=== PATIENT | male | born 1970 | race Hispanic/Latino ===

== ENCOUNTER 2018-08-06 13:01 | Inpatient (IN) | payer OTHER ==
[~2018-08-06] VITALS: Ht 165.1 cm; Wt 69.8 kg
[2018-08-06 14:23] LABS: APPEARANCE,URINE Clear (CLEAR); BILIRUBIN,URINE Negative (NEGATIVE); COLOR,URINE Dark Yellow (YELLOW); GLUCOSE, URINE (UA) Negative (NEGATIVE); KETONES,URINE Trace mg/dL (NEGATIVE); LEUKOCYTE ESTERASE ,URINE Negative (NEGATIVE); NITRATE,URINE Negative (NEGATIVE); OCCULT BLOOD,URINE Nonhemolyzed Trace (NEGATIVE); PROTEIN,URINE Trace (NEGATIVE)
[2018-08-06] MEDS ORDERED: SODIUM CHLORIDE 0.9% 1000ML 1,000 ML IV ONE (14:24)
[2018-08-06] MEDS ORDERED: ONDANSETRON HCL 4 MG/2 ML VIAL ONE (14:24)
[2018-08-06 14:43] LABS: BACTERIA,URINE None Seen /HPF (None Seen); RBC,URINE 0-1 /HPF (0-1); SQUAMOUS EPITHELIAL CELL,UR 0-2 /HPF (0-2); WBC,URINE None Seen /HPF (0-1)
[2018-08-06 14:50] LABS: BASOPHILS % (AUTO) 0.2 % (0.0-5.0); EOSINOPHILS % (AUTO) 1.5 % (0.0-8.0); HEMATOCRIT 41.9 % (42-54); LYMPHOCYTES % (AUTO) 17.3 % (21.0-51.0); MEAN CORPUSCULAR HEMOGLOBIN 33.2 pg (27.0-33.0); MEAN CORPUSCULAR HGB CONC 33.6 g/dL (32.0-36.0); MEAN CORPUSCULAR VOLUME 98.7 fL (79-99); MONOCYTES % (AUTO) 13.9 % (3.0-13.0); NEUTROPHILS % (AUTO) 67.1 % (40.0-77.0); PLATELET COUNT (AUTO) 157 K/uL (130-400); RED BLOOD CELL COUNT(AUTO) 4.25 MIL/uL (4.50-6.20); RED CELL DISTRIBUTION WIDTH 15.2 % (11.0-15.5); WHITE BLOOD COUNT (AUTO) 4.9 K/uL (4.8-10.8)
[2018-08-06 15:00] LABS: CREATININE 0.8 mg/dL (0.5-1.5); POTASSIUM 3.5 mmol/L (3.5-5.1)
[2018-08-06 15:01] LABS: ALBUMIN 3.6 g/dL (3.5-5.0); BILIRUBIN,TOTAL 0.3 mg/dL (0.2-1.0); TOTAL PROTEIN, SERUM 8.3 g/dL (6.0-8.3)
[2018-08-06] MEDS ORDERED: LORAZEPAM 2 MG/ML 1 ML VIAL ONE (16:57)
[2018-08-06 18:15] LABS: OCCULT BLOOD STOOL SINGLE ONLY POSITIVE (NEGATIVE)
[2018-08-06] MEDS ORDERED: MORPHINE SULFATE 2 MG/ML 1ML SYG IV PRN (18:30)
[2018-08-06] MEDS: LEVOFLOXACIN 500 MG/D5W 100 ML 100 ML IV SCH (18:30)
[2018-08-06] MEDS ORDERED: LEVOFLOXACIN 500 MG/D5W 100 ML 100 ML ONE (20:21)
[2018-08-06] MEDS ORDERED: LACTATED RINGERS 1000ML 1,000 ML IV ONE (20:21)
[2018-08-06 21:20] VITALS: BP 122/81
[2018-08-06] MEDS ORDERED: METO-409 PO (22:17)
[2018-08-06] MEDS ORDERED: CLON0.1T PO (22:17)
[2018-08-06] MEDS ORDERED: LEVE750T66 PO (22:17)
[2018-08-06] MEDS ORDERED: PARO-37 PO (22:17)
[2018-08-06] MEDS: METRONIDAZOLE 500MG/100ML BAG 100 ML IV SCH (22:29)
[2018-08-06] MEDS: LORAZEPAM 2 MG/ML 1 ML VIAL IVP PRN (22:30)
[2018-08-06] MEDS: LACTATED RINGERS 1000ML 1,000 ML IV SCH (22:31)
[2018-08-06 23:20] VITALS: BP 117/76
[2018-08-07 03:28] VITALS: BP 133/93
[2018-08-07] MEDS: METRONIDAZOLE 500MG/100ML BAG 100 ML IV SCH ×3 (03:51→18:37)
[2018-08-07] MEDS: LORAZEPAM 2 MG/ML 1 ML VIAL IVP PRN ×4 (05:09→22:55)
[2018-08-07] MEDS: LACTATED RINGERS 1000ML 1,000 ML IV SCH ×2 (05:13→14:26)
[2018-08-07] MEDS ORDERED: CHLORDIAZEPOXIDE HCL 25 MG CAP SEVERE PO PRN ×2 (05:30)
[2018-08-07] MEDS ORDERED: [UNRECOGNIZED DRUG - OTHER] IVP PRN (05:30)
[2018-08-07] MEDS ORDERED: CHLORDIAZEPOXIDE HCL 25 MG CAP MODERATE PO PRN (05:30)
[2018-08-07] MEDS ORDERED: LORAZEPAM 2 MG/ML IVP PRN ×2 (05:30)
[2018-08-07] MEDS ORDERED: [UNRECOGNIZED DRUG - OTHER] IVP PRN (05:30)
[2018-08-07 06:44] LABS: BASOPHILS % (AUTO) 1.1 % (0.0-5.0); HEMATOCRIT 36.7 % (42-54); LYMPHOCYTES % (AUTO) 8.8 % (21.0-51.0); MEAN CORPUSCULAR HGB CONC 33.5 g/dL (32.0-36.0); MEAN CORPUSCULAR VOLUME 98.5 fL (79-99); MONOCYTES % (AUTO) 16.9 % (3.0-13.0); NEUTROPHILS % (AUTO) 72.2 % (40.0-77.0); PLATELET COUNT (AUTO) 133 K/uL (130-400); RED BLOOD CELL COUNT(AUTO) 3.72 MIL/uL (4.50-6.20); WHITE BLOOD COUNT (AUTO) 5.2 K/uL (4.8-10.8)
[2018-08-07 06:52] LABS: CREATININE 0.7 mg/dL (0.5-1.5); POTASSIUM 3.5 mmol/L (3.5-5.1)
[2018-08-07 09:07] VITALS: BP 158/89
--- NOTE | 2018-08-07 09:58 | NUR ---
DR CUBA PAGED AT THIS TIME, PENDING CALL BACK.
[2018-08-07] MEDS: ONDANSETRON HCL 4 MG/2 ML VIAL IV PRN (10:23)
[2018-08-07] MEDS: PAROXETINE HCL 20 MG TABLET PO SCH (10:51)
[2018-08-07] MEDS: THIAMINE HCL 100 MG/ML 2ML VIAL IM SCH (10:51)
[2018-08-07] MEDS: METOPROLOL TARTRATE 50 MG TAB PO SCH ×2 (10:52→20:53)
[2018-08-07] MEDS: PANTOPRAZOLE SODIUM 40 MG TABLET.DR PO SCH (10:52)
[2018-08-07] MEDS: FOLIC ACID 1 MG TABLET PO SCH (10:52)
[2018-08-07] MEDS: LEVETIRACETAM 250 MG TABLET PO SCH ×2 (10:52→20:53)
[2018-08-07] MEDS: MULTIVITAMIN TABLET PO SCH (10:52)
[2018-08-07] MEDS ORDERED: LORAZEPAM 2 MG/ML 1 ML VIAL IM PRN (11:15)
[2018-08-07 12:07] VITALS: BP 125/77
--- NOTE | 2018-08-07 15:42 | NUR ---
PT UPDATE DR. CUBA CALLED THIS [facility]LE[facility] PULP BACK AND STATED NO INTERVENTION AT THIS TIME, PT SHOULD CONTINUE TO TX WITH ABX AND FOLLOW UP IN HIS OFFICE ONE WEEK AFTER D/C, POSSIBLE COLONOSCOPY IN SIX WEEKS.
[2018-08-07 16:12] VITALS: BP 136/99
[2018-08-07] MEDS: CLONIDINE HCL 0.1 MG TABLET PO SCH (17:19)
[2018-08-07] MEDS: LEVOFLOXACIN 500 MG/D5W 100 ML 100 ML IV SCH (17:19)
--- NOTE | 2018-08-07 18:47 | NUR ---
cm note met with patient and states resides at home with sister , pt is independent with adls and ambulation, no dme. brother assists with transport as needed. dc plan is back to same home setting [place]. no dc needs. Addendum: 08/07/18 at 1849 by TOM ROMERO CM Amended: Links added.
[2018-08-07 19:05] VITALS: BP 132/96
[2018-08-07] MEDS: CHLORDIAZEPOXIDE HCL 25 MG CAP PO PRN (20:57)
[2018-08-07 23:05] VITALS: BP 133/90
[2018-08-08] MEDS: METRONIDAZOLE 500MG/100ML BAG 100 ML IV SCH ×3 (03:05→18:30)
[2018-08-08] MEDS: LACTATED RINGERS 1000ML 1,000 ML IV SCH ×2 (03:05→10:25)
[2018-08-08] MEDS: [UNRECOGNIZED DRUG - OTHER] IVP PRN ×4 (03:10→22:25)
[2018-08-08] MEDS: LORAZEPAM 2 MG/ML IVP PRN ×4 (03:10→22:25)
[2018-08-08 03:15] VITALS: BP 143/89
[2018-08-08 06:09] LABS: BASOPHILS % (AUTO) 0.7 % (0.0-5.0); EOSINOPHILS % (AUTO) 0.4 % (0.0-8.0); HEMATOCRIT 37.5 % (42-54); LYMPHOCYTES % (AUTO) 10.3 % (21.0-51.0); MEAN CORPUSCULAR HEMOGLOBIN 32.8 pg (27.0-33.0); MEAN CORPUSCULAR HGB CONC 33.3 g/dL (32.0-36.0); MEAN CORPUSCULAR VOLUME 98.5 fL (79-99); MONOCYTES % (AUTO) 16.6 % (3.0-13.0); PLATELET COUNT (AUTO) 134 K/uL (130-400); RED BLOOD CELL COUNT(AUTO) 3.81 MIL/uL (4.50-6.20); RED CELL DISTRIBUTION WIDTH 14.9 % (11.0-15.5); WHITE BLOOD COUNT (AUTO) 6.4 K/uL (4.8-10.8)
[2018-08-08 06:25] LABS: ALBUMIN 3.1 g/dL (3.5-5.0); BILIRUBIN,TOTAL 0.9 mg/dL (0.2-1.0); CREATININE 0.9 mg/dL (0.5-1.5); POTASSIUM 3.6 mmol/L (3.5-5.1); TOTAL PROTEIN, SERUM 7.2 g/dL (6.0-8.3)
[2018-08-08 08:00] VITALS: BP 141/89
[2018-08-08] MEDS: LORAZEPAM 2 MG/ML 1 ML VIAL IVP PRN (08:12)
[2018-08-08] MEDS: LEVETIRACETAM 250 MG TABLET PO SCH ×2 (09:46→22:20)
[2018-08-08] MEDS: PANTOPRAZOLE SODIUM 40 MG TABLET.DR PO SCH (09:46)
[2018-08-08] MEDS: MULTIVITAMIN TABLET PO SCH (09:46)
[2018-08-08] MEDS: THIAMINE HCL 100 MG/ML 2ML VIAL IM SCH (09:47)
[2018-08-08] MEDS: PAROXETINE HCL 20 MG TABLET PO SCH (09:49)
[2018-08-08] MEDS: FOLIC ACID 1 MG TABLET PO SCH (09:49)
[2018-08-08] MEDS: METOPROLOL TARTRATE 50 MG TAB PO SCH ×2 (09:49→22:21)
[2018-08-08 12:00] VITALS: BP 149/100
[2018-08-08 16:00] VITALS: BP 136/87
[2018-08-08] MEDS: LEVOFLOXACIN 500 MG/D5W 100 ML 100 ML IV SCH (18:30)
[2018-08-08] MEDS: CHLORDIAZEPOXIDE HCL 25 MG CAP MODERATE PO PRN (18:31)
[2018-08-08] MEDS: CLONIDINE HCL 0.1 MG TABLET PO SCH (18:31)
--- NOTE | 2018-08-08 19:36 | NUR ---
Pt Update Pt undergoing alcohol withdrawal protocol, nursing will continue to monitor.
[2018-08-08 20:00] VITALS: BP 167/92
[2018-08-09] VITALS: BP 129/91
[2018-08-09] MEDS: METRONIDAZOLE 500MG/100ML BAG 100 ML IV SCH ×3 (03:10→17:49)
[2018-08-09 04:00] VITALS: BP 152/89
[2018-08-09] MEDS: CHLORDIAZEPOXIDE HCL 25 MG CAP MODERATE PO PRN (04:01)
[2018-08-09 05:14] LABS: BASOPHILS % (AUTO) 0.6 % (0.0-5.0); EOSINOPHILS % (AUTO) 1.1 % (0.0-8.0); HEMATOCRIT 37.7 % (42-54); LYMPHOCYTES % (AUTO) 11.9 % (21.0-51.0); MEAN CORPUSCULAR HEMOGLOBIN 33.2 pg (27.0-33.0); MEAN CORPUSCULAR HGB CONC 33.4 g/dL (32.0-36.0); MEAN CORPUSCULAR VOLUME 99.3 fL (79-99); MONOCYTES % (AUTO) 15.6 % (3.0-13.0); NEUTROPHILS % (AUTO) 70.8 % (40.0-77.0); PLATELET COUNT (AUTO) 126 K/uL (130-400); RED CELL DISTRIBUTION WIDTH 14.7 % (11.0-15.5); WHITE BLOOD COUNT (AUTO) 6.1 K/uL (4.8-10.8)
[2018-08-09 05:15] LABS: CREATININE 0.8 mg/dL (0.5-1.5); POTASSIUM 3.2 mmol/L (3.5-5.1)
[2018-08-09] MEDS: LORAZEPAM 2 MG/ML IVP PRN ×2 (06:23→11:13)
[2018-08-09] MEDS: [UNRECOGNIZED DRUG - OTHER] IVP PRN ×2 (06:23→11:13)
[2018-08-09] MEDS: LACTATED RINGERS 1000ML 1,000 ML IV SCH ×3 (06:24→17:49)
[2018-08-09 08:00] VITALS: BP 142/97
[2018-08-09] MEDS: FOLIC ACID 1 MG TABLET PO SCH (08:12)
[2018-08-09] MEDS: PANTOPRAZOLE SODIUM 40 MG TABLET.DR PO SCH (08:13)
[2018-08-09] MEDS: CHLORDIAZEPOXIDE HCL 25 MG CAP PO PRN (08:13)
[2018-08-09] MEDS: PAROXETINE HCL 20 MG TABLET PO SCH (08:13)
[2018-08-09] MEDS: MULTIVITAMIN TABLET PO SCH (08:13)
[2018-08-09] MEDS: METOPROLOL TARTRATE 50 MG TAB PO SCH ×2 (08:13→21:09)
[2018-08-09] MEDS: LEVETIRACETAM 250 MG TABLET PO SCH ×2 (08:13→21:10)
[2018-08-09] MEDS: ONDANSETRON HCL 4 MG/2 ML VIAL IV PRN (08:14)
[2018-08-09] MEDS: THIAMINE HCL 100 MG/ML 2ML VIAL IM SCH (08:14)
[2018-08-09] MEDS ORDERED: POTASSIUM CHLORIDE 10% ELIXIR 20 MEQ/15 ML UDCUP PO PRN (09:15)
[2018-08-09] MEDS ORDERED: POTASSIUM CHLORIDE 10MEQ/100ML 100 ML IV PRN (09:15)
[2018-08-09] MEDS ORDERED: LIDOCAINE HCL-MPF 1% 2ML VIAL IVP PRN (09:15)
[2018-08-09] MEDS: CHLORDIAZEPOXIDE HCL 25 MG CAP PO SCH ×2 (09:30→17:49)
[2018-08-09 12:00] VITALS: BP 120/85
[2018-08-09] MEDS: POTASSIUM CHLORIDE 20 MEQ ERTAB PO PRN ×3 (14:23→18:26)
[2018-08-09 16:00] VITALS: BP 138/83
[2018-08-09] MEDS: CLONIDINE HCL 0.1 MG TABLET PO SCH (16:30)
[2018-08-09] MEDS: LEVOFLOXACIN 500 MG/D5W 100 ML 100 ML IV SCH (17:49)
--- NOTE | 2018-08-09 19:40 | NUR ---
Received bedside report pt. is on seizure precaution,family to bedside.IVF infusing well to left forearm.
[2018-08-09 20:00] VITALS: BP 144/93
[2018-08-10] VITALS (8 sets, daily range): BP systolic 123–156; BP diastolic 52–98
[2018-08-10] MEDS: CHLORDIAZEPOXIDE HCL 25 MG CAP PO SCH ×3 (01:47→17:35)
[2018-08-10] MEDS: METRONIDAZOLE 500MG/100ML BAG 100 ML IV SCH ×3 (01:48→17:35)
[2018-08-10] MEDS: LACTATED RINGERS 1000ML 1,000 ML IV SCH ×2 (01:51→12:16)
[2018-08-10 09:09] LABS: EOSINOPHILS % (AUTO) 1.5 % (0.0-8.0); HEMATOCRIT 38.1 % (42-54); MEAN CORPUSCULAR HEMOGLOBIN 32.8 pg (27.0-33.0); MEAN CORPUSCULAR HGB CONC 33.2 g/dL (32.0-36.0); MEAN CORPUSCULAR VOLUME 98.8 fL (79-99); MONOCYTES % (AUTO) 16.4 % (3.0-13.0); NEUTROPHILS % (AUTO) 70.1 % (40.0-77.0); PLATELET COUNT (AUTO) 165 K/uL (130-400); RED BLOOD CELL COUNT(AUTO) 3.85 MIL/uL (4.50-6.20); RED CELL DISTRIBUTION WIDTH 14.8 % (11.0-15.5); WHITE BLOOD COUNT (AUTO) 7.5 K/uL (4.8-10.8)
[2018-08-10] MEDS: LEVETIRACETAM 250 MG TABLET PO SCH ×2 (10:06→21:52)
[2018-08-10] MEDS: MULTIVITAMIN TABLET PO SCH (10:06)
[2018-08-10] MEDS: PANTOPRAZOLE SODIUM 40 MG TABLET.DR PO SCH (10:06)
[2018-08-10] MEDS: PAROXETINE HCL 20 MG TABLET PO SCH (10:06)
[2018-08-10] MEDS: METOPROLOL TARTRATE 50 MG TAB PO SCH ×2 (10:06→21:52)
[2018-08-10] MEDS: [UNRECOGNIZED DRUG - OTHER] IVP PRN (14:15)
[2018-08-10] MEDS: LORAZEPAM 2 MG/ML IVP PRN (14:15)
[2018-08-10] MEDS: LEVOFLOXACIN 500 MG/D5W 100 ML 100 ML IV SCH (17:35)
[2018-08-10] MEDS: CLONIDINE HCL 0.1 MG TABLET PO SCH (17:35)
--- NOTE | 2018-08-10 20:15 | NUR ---
Pt Update Pt able to state name and , able to state he is in a hospital but not specific to [facility], more calm, no seizure activity noted, able to do PT with a walker, able to tolerate diet, no nausea or vomiting noted, X 1 Ativan given on shift, nursing will continue to monitor, care endorsed.
[2018-08-11] MEDS: METRONIDAZOLE 500MG/100ML BAG 100 ML IV SCH ×3 (01:28→17:42)
[2018-08-11] MEDS: LACTATED RINGERS 1000ML 1,000 ML IV SCH ×4 (01:28→20:29)
[2018-08-11] MEDS: CHLORDIAZEPOXIDE HCL 25 MG CAP PO SCH ×3 (01:28→17:40)
[2018-08-11] MEDS: [UNRECOGNIZED DRUG - OTHER] IVP PRN ×4 (01:29→10:49)
[2018-08-11] MEDS: LORAZEPAM 2 MG/ML IVP PRN ×4 (01:29→10:49)
[2018-08-11 03:15] VITALS: BP 154/96
[2018-08-11 05:55] LABS: CREATININE 0.7 mg/dL (0.5-1.5)
[2018-08-11] MEDS ORDERED: POTASSIUM CHLORIDE 20MEQ/100ML 100 ML IV ONE (06:18)
[2018-08-11] MEDS: POTASSIUM CHLORIDE 20 MEQ ERTAB PO PRN (06:27)
[2018-08-11 07:00] VITALS: BP 144/92
[2018-08-11] MEDS: METOPROLOL TARTRATE 50 MG TAB PO SCH ×2 (08:12→20:29)
[2018-08-11] MEDS: PANTOPRAZOLE SODIUM 40 MG TABLET.DR PO SCH (08:12)
[2018-08-11] MEDS: PAROXETINE HCL 20 MG TABLET PO SCH (08:12)
[2018-08-11] MEDS: MULTIVITAMIN TABLET PO SCH (08:13)
[2018-08-11] MEDS: LEVETIRACETAM 250 MG TABLET PO SCH ×2 (08:13→20:29)
--- NOTE | 2018-08-11 08:22 | NUR ---
PATIENT UPDATE PT MEDICATED WITH ATIVAN 2X DURING THE NIGHT, CIWA SCORE BET 18 TO THE 20'S. ORIENTED X 1, ON LIBRIUM AND ATIVAN PRN. ATTEMPTED TO GET OUT OF BED TWICE DURING THE NIGHT, TRYING TO SQUEEZE SELF IN BETWEEN THE SIDERAILS. DENIES ANY HALLUCINATION NOR ILLUSION, HARDLY SLEPT OVERNIGHT. HAD 3 LOOSE BM'S OVERNIGHT WITH THE POTASSIUM THIS AM AT 3.0, STARTED ON THE HYPOKALEMIA PROTOCOL, BUN AND CR STABLE. KDUR 20MEQ GIVEN PO. CONTINUES WITH THE IVF OF NS AT 100 CC/HR, NEEDED TO BE REORIENTED SEVERAL TIMES. STATED LOSING HIS CELL PHONE AT THE BEDSIDE, SISTER AT THE BEDSIDE AT SHIFT CHANGE LAST NIGHT. EARLY AM ASKING FOR A BAG, STATED THAT HE'S FOR DISCHARGE ALREADY, REORIENTED, UNABLE TO UNDERSTAND TEACHINGS GIVEN. CONTINUES ON SEIZURE PRECAUTION. WILL UPDATE MD ABOUT THE LATEST ELECTROLYTES.
[2018-08-11] MEDS: CHLORDIAZEPOXIDE HCL 25 MG CAP MODERATE PO PRN (10:49)
[2018-08-11 11:00] VITALS: BP 150/93
[2018-08-11] MEDS ORDERED: COMPOUND IV REFRIGERATED 1 EACH IVSOLN MISC PRN (15:45)
[2018-08-11 16:00] VITALS: BP 125/91
[2018-08-11] MEDS: CLONIDINE HCL 0.1 MG TABLET PO SCH (17:36)
[2018-08-11] MEDS: LEVOFLOXACIN 500 MG/D5W 100 ML 100 ML IV SCH (17:42)
--- NOTE | 2018-08-11 18:34 | NUR ---
Nutrition Screen: Pt triggered for nutrition screen based on LOS. Pt is on a soft diet. Pt with good oral intake. Pt is a winter [place]. Labs reviewed. BMI 25.6 (overweight). LBM 08/11/18. Pt with no skin breakdown. Pt with no nutritional deficit at this time.
[2018-08-11 19:00] VITALS: BP 149/91
[2018-08-11 23:00] VITALS: BP 140/88
[2018-08-12] MEDS: METRONIDAZOLE 500MG/100ML BAG 100 ML IV SCH ×2 (01:25→10:54)
[2018-08-12] MEDS: CHLORDIAZEPOXIDE HCL 25 MG CAP PO SCH ×2 (01:26→09:40)
[2018-08-12 03:00] VITALS: BP 133/90
[2018-08-12 04:56] LABS: HEMATOCRIT 38.9 % (42-54); MEAN CORPUSCULAR HGB CONC 33.6 g/dL (32.0-36.0); MEAN CORPUSCULAR VOLUME 98.1 fL (79-99); PLATELET COUNT (AUTO) 219 K/uL (130-400); RED BLOOD CELL COUNT(AUTO) 3.96 MIL/uL (4.50-6.20); RED CELL DISTRIBUTION WIDTH 14.5 % (11.0-15.5); WHITE BLOOD COUNT (AUTO) 7.4 K/uL (4.8-10.8)
[2018-08-12 05:08] LABS: CREATININE 0.7 mg/dL (0.5-1.5); POTASSIUM 3.2 mmol/L (3.5-5.1)
[2018-08-12 08:00] VITALS: BP 97/70
[2018-08-12] MEDS ORDERED: METR-172 PO (08:30)
[2018-08-12] MEDS ORDERED: LEVO500T2 PO (08:30)
[2018-08-12] MEDS ORDERED: POTASSIUM CHLORIDE 20 MEQ ERTAB PO SCH (08:30)
[2018-08-12] MEDS ORDERED: M.V.I. IV [ADULT] 10 ML, FOLIC ACID 1 MG, THIAMINE HCL 100 MG in SODIUM CHLORIDE 0.9% 1... IV SCH (09:00)
[2018-08-12] MEDS ORDERED: FOLIC ACID 1 MG TABLET PO SCH (09:00)
[2018-08-12] MEDS ORDERED: THIAMINE HCL 100 MG TABLET PO SCH (09:00)
[2018-08-12] MEDS ORDERED: THIAMINE HCL 100 MG/ML 2ML VIAL IM SCH (09:00)
[2018-08-12] MEDS: MULTIVITAMIN TABLET PO SCH (09:40)
[2018-08-12] MEDS: METOPROLOL TARTRATE 50 MG TAB PO SCH (09:40)
[2018-08-12] MEDS: LEVETIRACETAM 250 MG TABLET PO SCH (09:40)
[2018-08-12] MEDS: PANTOPRAZOLE SODIUM 40 MG TABLET.DR PO SCH (09:40)
[2018-08-12] MEDS: PAROXETINE HCL 20 MG TABLET PO SCH (09:40)
[2018-08-12] MEDS ORDERED: LIB25 PO ×3 (11:00)
[2018-08-12 12:00] VITALS: BP 101/75
--- NOTE | 2018-08-12 14:32 | NUR ---
Pt refused offer for flu shot. Discharge interventions completed. Endorsed to primary nurse Genaro for completion of bedside education and teach back as well as removal of PIV's.
--- NOTE | 2018-08-12 15:45 | NUR ---
DISCHARGE PATIENT/SISTER GIVEN INSTRUCTIONS VIA TEACH BACK. PIV DISCONTINUED, TIP INTACT. PHYSICIAN'S LIST GIVEN. PER PATIENT/SISTER WILL NOT FOLLOW UP ANY PCP DUE TO THEY DON'T LIVE HERE. THEY ARE FROM [place]. PATIENT/SISTER REFUSED MRA/MRI OF BRAIN PER DR. SO. PATIENT STATED SOON HE LEAVES THIS PLACE HE WILL START DRINKING AGAIN. RX GIVEN FOR ANTIBIOTICS. PATIENT STABLE AND WISHES TO GO HOME WITH HIS SISTER AT THIS TIME.
== END 2018-08-12 16:00 | disposition home or self-care (01) | DRG 439 ==
LOC: EDH 13:01 → EDHIP 18:18 → 3DH 20:55
PROVIDERS: ADMIT Hospitalist; ATTEND Hospitalist
DX: K85.90 Acute pancreatitis without necrosis or infection, unspecified (principal); K57.92 Diverticulitis of intestine, part unspecified, without perforation or abscess without bleeding; K86.1 Other chronic pancreatitis; K29.70 Gastritis, unspecified, without bleeding; F32.9 Major depressive disorder, single episode, unspecified; F17.210 Nicotine dependence, cigarettes, uncomplicated; F41.9 Anxiety disorder, unspecified; G40.909 Epilepsy, unspecified, not intractable, without status epilepticus; I10 Essential (primary) hypertension; K76.0 Fatty (change of) liver, not elsewhere classified; E87.6 Hypokalemia; Z79.899 Other long term (current) drug therapy
CPT/HCPCS: 36415; 70450; 74176; 80048; 80053; 81001; 82140; 82270; 83690; 85025; 85027; 87046; 87324; 97039; G0378; G0480; J1956; J2060; J2405; J3411; J3480; J3490; J7030; J7120